=== PATIENT | female | born 1985 | race Two or more races ===

== ENCOUNTER 2018-09-12 15:35 | Inpatient (IN) ==
[2018-09-12] MEDS ORDERED: D5LR 1L W PITOCIN 10 UNITS/L 10 UNITS/1,000 ML BAG IV ONE (15:59)
[2018-09-12] MEDS ORDERED: D5 1/2 NS 1000 ML 1,000 ML ONE (15:59)
[2018-09-12] MEDS ORDERED: PHENERGAN INJ 25 MG IM PRN (16:06)
[2018-09-12] MEDS ORDERED: D5LR 1L W PITOCIN 10 UNITS/L 10 UNITS/1,000 ML BAG IV PRN (16:06)
[2018-09-12] MEDS ORDERED: NUBAIN INJ 200 MG VIAL MULTIDOSE IVP PRN (16:06)
[2018-09-12] MEDS ORDERED: PITOCIN IVP ONE (16:06)
[2018-09-12] MEDS ORDERED: REGLAN INJ 10 MG VIAL IVP PRN (16:06)
[2018-09-12] MEDS ORDERED: DILAUDID INJ IVP PRN (16:06)
[2018-09-12 16:37] LABS: BILIRUBIN,URINE NEGATIVE (NEGATIVE); BLOOD/HEMOGLOBIN,URINE 3+ (NEGATIVE); GLUCOSE, URINE NEGATIVE (NEGATIVE); KETONES,URINE NEGATIVE (NEGATIVE); LEUKOCYTE ESTERASE ,URINE NEGATIVE (NEGATIVE); NITRITES,URINE NEGATIVE (NEGATIVE); PROTEIN,URINE NEGATIVE (NEGATIVE); UROBILINOGEN,URINE NORMAL (NORMAL)
[2018-09-12 16:44] LABS: BASOPHILS % (AUTO) 0.1 % (0.2-1.0); EOSINOPHILS # (AUTO) 0.1 x10^3/uL (0.0-0.2); EOSINOPHILS % (AUTO) 0.8 % (0.9-2.9); HEMATOCRIT 34.7 % (36.0-47.0); HEMOGLOBIN 11.7 g/dL (12.0-16.0); LYMPHOCYTES # (AUTO) 1.3 X10^3/uL (1.3-2.9); LYMPHOCYTES % (AUTO) 18.6 % (21.0-51.0); MEAN CORPUSCULAR HEMOGLOBIN 30.6 pg (27.0-34.0); MEAN CORPUSCULAR HGB CONC 33.6 g/dL (33.0-35.0); MEAN CORPUSCULAR VOLUME 91.2 fL (80.0-100.0); MONOCYTES # (AUTO) 0.5 x10^3/uL (0.3-0.8); NEUTROPHILS # (AUTO) 5.2 x10^3/uL (2.2-4.8); NEUTROPHILS % (AUTO) 73.5 % (42.0-75.0); PLATELET COUNT 138 X10^3/uL (150.0-450.0); RED BLOOD COUNT 3.81 X10^6/uL (3.5-5.4); RED CELL DISTRIBUTION WIDTH 15.6 % (11.6-16.5)
[2018-09-12] MEDS ORDERED: PITOCIN ONE (16:47)
[2018-09-12] MEDS ORDERED: D5 1/2 NS 1L W PITOCIN 20 UNITS/L 20 UNITS/1,000 ML BAG IV ONE (16:47)
[2018-09-12 16:53] LABS: APPEARANCE,URINE CLOUDY (CLEAR); COLOR,URINE YELLOW (YELLOW)
[2018-09-12 17:00] LABS: BLOOD UREA NITROGEN 7 mg/dL (7-18); CALCIUM 9.2 mg/dL (8.5-10.1); CHLORIDE 107 mmol/L (98-107); CREATININE 0.56 mg/dL (0.55-1.02); SODIUM 140 mmol/L (136-145); eGFR NON BLACK RACES > 60 (>60)
[2018-09-12] MEDS ORDERED: D5 1/2 NS 1000 ML 1,000 ML IV SCH (17:00)
[2018-09-12 17:07] LABS: AMORPHOUS SEDIMENT,UR 2+ /HPF (NEGATIVE); BACTERIA,URINE TRACE /HPF (NEGATIVE); RBC,URINE 0-2 /HPF (NONE SEEN); SQUAMOUS EPITHELIAL CELL,UR RARE /HPF (NEGATIVE)
[2018-09-12] MEDS ORDERED: XYLOCAINE 1 % (PLAIN) ONE (21:19)
[2018-09-12] MEDS ORDERED: D5 1/2 NS 1000 ML 1,000 ML with PITOCIN 20 UNITS IV SCH ×2 (22:00)
[2018-09-12] MEDS ORDERED: DERMOPLAST SPRAY ONE (22:10)
[2018-09-12] MEDS ORDERED: AMBIEN PO PRN (22:27)
[2018-09-12] MEDS ORDERED: MILK OF MAGNESIA PO PRN (22:27)
[2018-09-13] MEDS: DERMOPLAST SPRAY TOP PRN
[2018-09-13] MEDS: ADACEL or BOOSTRIX TDaP VACCINE IM ONE (04:56)
[2018-09-13 05:32] LABS: HEMATOCRIT 32.4 % (36.0-47.0); HEMOGLOBIN 10.8 g/dL (12.0-16.0)
[2018-09-13] MEDS: MOTRIN TAB 800 MG PO PRN ×2 (06:27→23:29)
[2018-09-13] MEDS: PRENATAL PLUS PO SCH (08:14)
[2018-09-13] MEDS: ZANTAC PO SCH ×2 (08:14→21:52)
[2018-09-14] MEDS: PRENATAL PLUS PO SCH (08:00)
[2018-09-14] MEDS: MOTRIN TAB 800 MG PO PRN (08:00)
[2018-09-14] MEDS: ZANTAC PO SCH (08:09)
[2018-09-14] MEDS: DERMOPLAST SPRAY TOP PRN (11:49)
[2018-09-14 14:07] VITALS: BP 93/52
[2018-09-14] MEDS ORDERED: ADACEL or BOOSTRIX TDaP VACCINE IM ONE (14:15)
[2018-09-14] MEDS: ADACEL or BOOSTRIX TDaP VACCINE IM ONE (14:20)
== END 2018-09-14 14:45 | disposition home or self-care (01) | DRG 807 ==
LOC: LD 15:35 → ICU 22:21 → MED/SURG 09-13 16:15
PROVIDERS: ADMIT Obstetrics & Gynecology Obstetrics; ATTEND Obstetrics & Gynecology Obstetrics
DX: Z37.0 Single live birth; O70.1 Second degree perineal laceration during delivery; Z23 Encounter for immunization; Z3A.39 39 weeks gestation of pregnancy; O26.893 Other specified pregnancy related conditions, third trimester
CPT/HCPCS: 36415; 59409; 80048; 81001; 85014; 85018; 85025; 86592; 86850; 86900; 86901; 90715; S0197; J2590; S5010

== ENCOUNTER 2020-10-12 19:08 | Inpatient (IN) ==
[~2020-10-12 19:08] MED LIST: PITOCIN IVP ONE
[2020-10-12] MEDS: D5 1/2 NS 1000 ML 1,000 ML with PITOCIN 20 UNITS IV SCH ×2 (19:10)
[2020-10-12] MEDS ORDERED: STADOL INJ IVP ONE (19:30)
[2020-10-12 20:06] VITALS: BMI 35.2
[2020-10-12] MEDS ORDERED: MOTRIN TAB 800 MG PO PRN (20:46)
[2020-10-12] MEDS ORDERED: PHENERGAN INJ 25 MG IM PRN (20:46)
[2020-10-13 05:54] LABS: HEMATOCRIT 36.7 % (36.0-47.0); HEMOGLOBIN 11.9 g/dL (12.0-16.0)
[2020-10-13] MEDS ORDERED: PERCOCET TAB 5/325 MG PO PRN (09:59)
[2020-10-13] MEDS: D5 1/2 NS 1000 ML 1,000 ML with PITOCIN 20 UNITS IV SCH ×6 (10:10→20:47)
[2020-10-13] MEDS: MOTRIN TAB 800 MG PO SCH ×3 (10:23→21:08)
[2020-10-14] MEDS: MOTRIN TAB 800 MG PO SCH (06:20)
[2020-10-14] MEDS: D5 1/2 NS 1000 ML 1,000 ML with PITOCIN 20 UNITS IV SCH ×2 (06:20)
[2020-10-14 08:10] VITALS: BP 106/72
== END 2020-10-14 10:05 | disposition home or self-care (01) | DRG 807 ==
LOC: ER 19:08 → LD 19:09 → MED/SURG 22:00
PROVIDERS: ADMIT Obstetrics & Gynecology Obstetrics; ATTEND Obstetrics & Gynecology Obstetrics
DX: Z3A.39 39 weeks gestation of pregnancy; O62.3 Precipitate labor; Z20.822 Contact with and (suspected) exposure to COVID-19; O70.1 Second degree perineal laceration during delivery; Z37.0 Single live birth

== ENCOUNTER 2022-05-18 12:50 | Inpatient (IN) ==
[2022-05-18] MEDS ORDERED: D5 1/2 NS 1,000 ML 1,000 ML IV ONE (12:59)
[2022-05-18] MEDS ORDERED: PITOCIN ONE (12:59)
[2022-05-18] MEDS ORDERED: D5 LR + PITOCIN 10 UNITS/L 10 UNITS/1,000 ML BAG IV ONE (13:00)
[2022-05-18] MEDS ORDERED: BETADINE SOLN ONE (13:00)
[2022-05-18] MEDS ORDERED: D5 1/2 NS 1,000 mL + PITOCIN 20 UNITS/L IV 20 UNITS/1,000 ML BAG IV ONE (13:01)
[2022-05-18] MEDS ORDERED: PHENERGAN INJ 25 MG IM PRN ×2 (13:07→16:46)
[2022-05-18] MEDS ORDERED: REGLAN INJ 10 MG VIAL IVP PRN (13:07)
[2022-05-18] MEDS ORDERED: D5 LR + PITOCIN 10 UNITS/L 10 UNITS/1,000 ML BAG IV PRN (13:07)
[2022-05-18] MEDS ORDERED: STADOL INJ IVP PRN (13:09)
[2022-05-18 13:41] LABS: BASOPHILS % (AUTO) 0.3 % (0.2-1.0); EOSINOPHILS % (AUTO) 0.5 % (0.9-2.9); HEMATOCRIT 30.9 % (36.0-47.0); HEMOGLOBIN 10.1 g/dL (12.0-16.0); LYMPHOCYTES # (AUTO) 1.1 X10^3/uL (1.3-2.9); LYMPHOCYTES % (AUTO) 13.6 % (21.0-51.0); MEAN CORPUSCULAR HEMOGLOBIN 26.3 pg (27.0-34.0); MEAN CORPUSCULAR HGB CONC 32.6 g/dL (33.0-35.0); MEAN CORPUSCULAR VOLUME 80.7 fL (80.0-100.0); MEAN PLATELET VOLUME 10.9 fL (7.4-11.0); MONOCYTES # (AUTO) 0.4 x10^3/uL (0.3-0.8); MONOCYTES % (AUTO) 5.2 % (0.0-13.0); NEUTROPHILS # (AUTO) 6.4 x10^3/uL (2.2-4.8); NEUTROPHILS % (AUTO) 80.4 % (42.0-75.0); RED BLOOD COUNT 3.83 X10^6/uL (3.5-5.4)
[2022-05-18] MEDS ORDERED: D5 1/2 NS 1,000 ML 1,000 ML IV SCH (14:00)
[2022-05-18 14:07] LABS: BLOOD UREA NITROGEN 10 mg/dL (7-18); CALCIUM 8.2 mg/dL (8.5-10.1); CARBON DIOXIDE 24.4 mmol/L (21-32); CHLORIDE 106 mmol/L (98-107); SODIUM 138 mmol/L (136-145); eGFR NON BLACK RACES > 60 (>60)
[2022-05-18 14:16] LABS: BILIRUBIN,URINE NEGATIVE (NEGATIVE); BLOOD/HEMOGLOBIN,URINE 2+ (NEGATIVE); GLUCOSE, URINE NEGATIVE (NEGATIVE); KETONES,URINE NEGATIVE (NEGATIVE); LEUKOCYTE ESTERASE ,URINE 1+ (NEGATIVE); NITRITES,URINE NEGATIVE (NEGATIVE); PROTEIN,URINE 2+ (NEGATIVE); UROBILINOGEN,URINE 1+ (NORMAL)
[2022-05-18 14:20] LABS: APPEARANCE,URINE HAZY (CLEAR); BACTERIA,URINE TRACE /HPF (NEGATIVE); COLOR,URINE YELLOW (YELLOW); SQUAMOUS EPITHELIAL CELL,UR MODERATE /HPF (NEGATIVE)
[2022-05-18] MEDS ORDERED: MOTRIN TAB 800 MG PO PRN (16:46)
[2022-05-18] MEDS ORDERED: STADOL INJ ONE (16:58)
[2022-05-18] MEDS ORDERED: MILK OF MAGNESIA PO PRN (17:26)
[2022-05-18] MEDS ORDERED: AMBIEN PO PRN (17:26)
[2022-05-18] MEDS ORDERED: DERMOPLAST PAIN RELIEF SPRAY TOP PRN (17:26)
[2022-05-18] MEDS: D5 1/2 NS 1,000 ML 1,000 ML with PITOCIN 20 UNITS IV SCH ×2 (17:41)
[2022-05-19 05:08] LABS: HEMOGLOBIN 9.6 g/dL (12.0-16.0)
[2022-05-19] MEDS: PRENATAL PLUS PO SCH (08:29)
[2022-05-19] MEDS: D5 1/2 NS 1,000 ML 1,000 ML with PITOCIN 20 UNITS IV SCH ×2 (17:41)
[2022-05-19] MEDS: MOTRIN TAB 800 MG PO PRN (21:15)
[2022-05-20 09:26] VITALS: BP 131/74
[2022-05-20] MEDS: PRENATAL PLUS PO SCH (09:38)
[2022-05-20] MEDS: MOTRIN TAB 800 MG PO PRN (09:38)
== END 2022-05-20 12:15 | disposition home or self-care (01) | DRG 807 ==
LOC: LD 12:50 → MED/SURG 17:35
PROVIDERS: ADMIT Obstetrics & Gynecology Obstetrics; ATTEND Obstetrics & Gynecology Obstetrics
DX: Z3A.40 40 weeks gestation of pregnancy; Z37.0 Single live birth; O70.0 First degree perineal laceration during delivery; O26.893 Other specified pregnancy related conditions, third trimester